=== PATIENT | female | born 1975 | race Caucasian/White ===

== ENCOUNTER 2021-11-11 18:20 | Inpatient (IN) ==
[2021-11-11] MEDS ORDERED: Ondansetron 4 MG/2 ML VIAL IVP ONE (18:34)
[2021-11-11 18:47] LABS: Bilirubin,Urine Moderate (Negative); Blood,Urine Trace-intact (Negative); Clarity,Urine Cloudy (Clear); Glucose,Urine (UA) >=1000 mg/dL (Normal); Ketones,Urine Trace mg/dL (Negative); Leukocyte Esterase,Urine Negative (Negative); Nitrite,Urine Negative (Negative); PH,Urine 5.5 pH Units (5.0-8.0); Protein,Urine 30 mg/dL (Neg-Trace); Specific Gravity,Urine 1.025 (1.010-1.025); Urobilinogen,Urine Normal (Normal)
[2021-11-11 18:52] LABS: Color,Urine Dark Yellow (Yellow)
[2021-11-11 18:57] LABS: Bacteria,Urine Moderate per hpf (None-Few); Budding Yeast,Urine Many per hpf (None Seen); RBC,Urine 0-3 per hpf (0-3); Squamous Epithelial Cell,Urine Many per hpf (None-Few)
[2021-11-11 19:09] LABS: Basophils % 0.6 %; Eosinophils # 0.1 K/mcL (0.0-0.6); Eosinophils % 1.3 %; Hematocrit 38.2 % (35.3-44.9); Hemoglobin 12.4 g/dL (11.5-15.4); Immature Granulocytes % 0.3 % (0-4); Mean Corpuscular HGB Conc 32.5 g/dL (31.6-35.5); Mean Corpuscular Hemoglobin 25.2 pg (28.0-33.3); Mean Corpuscular Volume 77.6 fL (83.0-100.0); Mean Platelet Volume 11.2 fL (9.4-12.4); Monocytes # 1.1 K/mcL (0.0-1.3); Monocytes % 17.3 %; Platelet Count 146 K/mcL (140-400); Red Blood Count 4.92 M/mcL (3.82-4.97); Red Cell Distribution Width 20.8 % (11.5-14.5); Segmented Neutrophils % 64.5 %; White Blood Count 6.2 K/mcL (4.3-11.1)
[2021-11-11 19:15] LABS: INR 1.4; Prothrombin Time 15.4 Seconds (9.4-12.1)
[2021-11-11 19:18] LABS: Activated Partial Thrombo Time 33.7 Seconds (26.0-36.0)
[2021-11-11 19:26] LABS: Alanine Aminotransferase 37 Units/L (7-52); Albumin 2.7 g/dL (3.5-5.7); Albumin/Globulin Ratio 0.6 (1.1-2.2); Alkaline Phosphatase 325 Units/L (34-104); Amylase 17 Units/L (29-103); Aspartate Amino Transferase 64 Units/L (13-39); BUN/Creatinine Ratio 15 (6-26); Bilirubin,Direct 0.9 mg/dL (0.0-0.2); Bilirubin,Indirect 1.9 mg/dL (0.0-1.0); Bilirubin,Total 2.8 mg/dL (0.3-1.0); Blood Urea Nitrogen 14 mg/dL (6-20); Calcium 8.3 mg/dL (8.6-10.3); Carbon Dioxide 23 mEq/L (23-29); Chloride 98 mEq/L (98-107); Globulin 4.6 g/dL (2.4-3.5); Glucose 340 mg/dL (70-105); Lipase 45 Units/L (11-82); Osmolality,Calculated 284 (280-300); Potassium 3.8 mEq/L (3.5-5.1); Sodium 130 mEq/L (136-145); Total Protein 7.3 g/dL (6.4-8.9); eGFR For African Americans > 60 (> 60); eGFR For Non-African Americans > 60 (> 60)
[2021-11-11] MEDS ORDERED: Furosemide 40 MG/4 ML VIAL IVP ONE (20:13)
[2021-11-11] MEDS: 0.9 % Sodium Chloride 1,000 ML IVC SCH (20:57)
[2021-11-11] MEDS ORDERED: Ketorolac 30 MG/ML VIAL IVP ONE (21:55)
[2021-11-12] MEDS: 0.9 % Sodium Chloride 1,000 ML IVC SCH (09:30)
[2021-11-12] MEDS ORDERED: *HR* OxyCODONE/APAP 5/325 TABLET PO ONE (09:48)
[2021-11-12] MEDS ORDERED: Naloxone 0.4 MG/ML INJ IVP PRN (10:52)
[2021-11-12] MEDS ORDERED: Ondansetron 4 MG/2 ML VIAL IVP PRN (11:08)
[2021-11-12] MEDS ORDERED: Acetaminophen 325 MG TABLET PO PRN (11:08)
[2021-11-12] MEDS ORDERED: CefTRIAXone 1,000 MG VIAL ONE (16:20)
[2021-11-12] MEDS: Furosemide 40 MG/4 ML VIAL IVP SCH ×2 (16:26→21:19)
[2021-11-12] MEDS: cefTRIAXone 1,000 MG in Water for inj. (sterile) 10 ML IVP SCH (16:26)
[2021-11-12] MEDS ORDERED: *HR* Dextrose 50 % in Water (Syg) 50 ML SYRINGE IVP PRN (16:30)
[2021-11-12] MEDS ORDERED: D5% in Water 1,000 ML IVC PRN (16:30)
[2021-11-12] MEDS ORDERED: Dextrose Gel 15 GM/37.5 ML TUBE PO PRN ×2 (16:30)
[2021-11-12] MEDS: Insulin LISPRO 300 UNITS/3 ML VIAL SUBQ SCH ×2 (17:07→21:57)
[2021-11-12] MEDS: Divalproex (12 HR) 250 MG TABLET PO SCH (20:50)
[2021-11-13 07:41] LABS: Hematocrit 34.6 % (35.3-44.9); Hemoglobin 11.4 g/dL (11.5-15.4); Mean Corpuscular HGB Conc 32.9 g/dL (31.6-35.5); Mean Corpuscular Hemoglobin 25.9 pg (28.0-33.3); Mean Corpuscular Volume 78.5 fL (83.0-100.0); Mean Platelet Volume 11.9 fL (9.4-12.4); Platelet Count 145 K/mcL (140-400); Red Blood Count 4.41 M/mcL (3.82-4.97); Red Cell Distribution Width 20.4 % (11.5-14.5); White Blood Count 6.9 K/mcL (4.3-11.1)
[2021-11-13] MEDS ORDERED: carvediloL 6.25 MG TABLET PO SCH (08:00)
[2021-11-13 08:07] LABS: Albumin 2.3 g/dL (3.5-5.7); Albumin/Globulin Ratio 0.6 (1.1-2.2); Bilirubin,Total 2.3 mg/dL (0.3-1.0); Chol/HDL Ratio 9.4 (0-4.9); Globulin 4.1 g/dL (2.4-3.5); Magnesium 1.4 mg/dL (1.6-2.6); Total Protein 6.4 g/dL (6.4-8.9)
[2021-11-13] MEDS ORDERED: lisinopriL 20 MG TABLET PO SCH (09:00)
[2021-11-13] MEDS: Insulin LISPRO 300 UNITS/3 ML VIAL SUBQ SCH ×4 (11:44→23:36)
[2021-11-13] MEDS: amLODIPine 5 MG TABLET PO SCH (12:47)
[2021-11-13] MEDS: Divalproex (12 HR) 250 MG TABLET PO SCH ×2 (12:47→23:31)
[2021-11-13] MEDS: Furosemide 40 MG/4 ML VIAL IVP SCH ×2 (13:44→21:04)
[2021-11-13] MEDS: cefTRIAXone 1,000 MG in Water for inj. (sterile) 10 ML IVP SCH (17:26)
[2021-11-13 17:55] LABS: RBC,Peritoneal Fluid < 2000 RBC/mcL
[2021-11-13 18:05] LABS: Amylase,Peritoneal Fluid < 10 Units/L (No Ref Range); Glucose,Peritoneal Fluid 269 mg/dL (No Ref Range); LDH,Peritoneal Fluid 30 Units/L (No Ref Range); Total Protein,Peritoneal Fluid < 2.0 g/dL
[2021-11-13 18:17] LABS: Appearance of Peritoneal Fl CLEAR (Clear)
[2021-11-13 19:01] LABS: Basophils,Peritoneal Fluid 0 %; Eosinophils,Peritoneal Fluid 0 %
[2021-11-13] MEDS: Lactulose Oral Soln 20 GM/30 ML UDC PO SCH (23:31)
[2021-11-13] MEDS: Albumin 25% 25gram/100mL 25 GM/100 ML IV.SOLN IVPB SCH (23:33)
[2021-11-14 07:12] LABS: Hematocrit 33.7 % (35.3-44.9); Hemoglobin 10.9 g/dL (11.5-15.4); Mean Corpuscular HGB Conc 32.3 g/dL (31.6-35.5); Mean Corpuscular Hemoglobin 25.3 pg (28.0-33.3); Mean Corpuscular Volume 78.2 fL (83.0-100.0); Mean Platelet Volume 10.9 fL (9.4-12.4); Platelet Count 118 K/mcL (140-400); Red Blood Count 4.31 M/mcL (3.82-4.97); Red Cell Distribution Width 20.5 % (11.5-14.5); White Blood Count 6.3 K/mcL (4.3-11.1)
[2021-11-14 07:45] LABS: Albumin 2.6 g/dL (3.5-5.7); Albumin/Globulin Ratio 0.7 (1.1-2.2); Bilirubin,Total 2.1 mg/dL (0.3-1.0); Calcium 7.9 mg/dL (8.6-10.3); Globulin 3.8 g/dL (2.4-3.5); Potassium 3.9 mEq/L (3.5-5.1); Total Protein 6.4 g/dL (6.4-8.9)
[2021-11-14] MEDS: amLODIPine 5 MG TABLET PO SCH (08:57)
[2021-11-14] MEDS: Divalproex (12 HR) 250 MG TABLET PO SCH ×2 (08:59→21:28)
[2021-11-14] MEDS: Albumin 25% 25gram/100mL 25 GM/100 ML IV.SOLN IVPB SCH (09:00)
[2021-11-14] MEDS: Lactulose Oral Soln 20 GM/30 ML UDC PO SCH ×3 (09:01→23:50)
[2021-11-14] MEDS: Furosemide 40 MG/4 ML VIAL IVP SCH ×2 (09:01→21:28)
[2021-11-14] MEDS: Insulin LISPRO 300 UNITS/3 ML VIAL SUBQ SCH ×4 (09:15→21:29)
[2021-11-14] MEDS: cefTRIAXone 1,000 MG in Water for inj. (sterile) 10 ML IVP SCH (16:53)
[2021-11-14] MEDS ORDERED: Albumin 25% 25gram/100mL 25 GM/100 ML IV.SOLN IVPB ONE (23:24)
[2021-11-15 06:13] LABS: Hematocrit 31.2 % (35.3-44.9); Hemoglobin 10.2 g/dL (11.5-15.4); Mean Corpuscular HGB Conc 32.7 g/dL (31.6-35.5); Mean Corpuscular Hemoglobin 25.3 pg (28.0-33.3); Mean Corpuscular Volume 77.4 fL (83.0-100.0); Platelet Count 102 K/mcL (140-400); Red Blood Count 4.03 M/mcL (3.82-4.97); Red Cell Distribution Width 20.4 % (11.5-14.5); White Blood Count 5.4 K/mcL (4.3-11.1)
[2021-11-15 06:34] LABS: Alanine Aminotransferase 25 Units/L (7-52); Albumin 2.9 g/dL (3.5-5.7); Albumin/Globulin Ratio 0.9 (1.1-2.2); Alkaline Phosphatase 219 Units/L (34-104); Aspartate Amino Transferase 45 Units/L (13-39); BUN/Creatinine Ratio 17 (6-26); Bilirubin,Total 1.7 mg/dL (0.3-1.0); Blood Urea Nitrogen 16 mg/dL (6-20); Carbon Dioxide 25 mEq/L (23-29); Chloride 99 mEq/L (98-107); Globulin 3.2 g/dL (2.4-3.5); Glucose 322 mg/dL (70-105); Magnesium 1.6 mg/dL (1.6-2.6); Osmolality,Calculated 286 (280-300); Potassium 3.8 mEq/L (3.5-5.1); Sodium 131 mEq/L (136-145); Total Protein 6.1 g/dL (6.4-8.9); eGFR For African Americans > 60 (> 60); eGFR For Non-African Americans > 60 (> 60)
[2021-11-15] MEDS: amLODIPine 5 MG TABLET PO SCH (08:48)
[2021-11-15] MEDS: Lactulose Oral Soln 20 GM/30 ML UDC PO SCH ×3 (08:48→20:39)
[2021-11-15] MEDS: Divalproex (12 HR) 250 MG TABLET PO SCH ×2 (08:48→20:37)
[2021-11-15] MEDS: Furosemide 40 MG/4 ML VIAL IVP SCH (09:02)
[2021-11-15] MEDS: Insulin LISPRO 300 UNITS/3 ML VIAL SUBQ SCH ×6 (09:02→20:38)
[2021-11-15] MEDS ORDERED: *HR* OxyCODONE Immed Rel 5 MG TABLET PO PRN (11:37)
[2021-11-15] MEDS: *HR* OxyCODONE Immed Rel 5 MG TABLET PO PRN ×2 (12:03→20:38)
[2021-11-15] MEDS: Magnesium Oxide 400 MG TABLET PO SCH ×2 (12:03→20:38)
[2021-11-15] MEDS: Furosemide 20 MG TABLET PO SCH (20:37)
[2021-11-15] MEDS: Insulin DETEMIR 100 UNIT/ML X5UNITS SUBQ SCH (20:38)
[2021-11-15] MEDS: Cefdinir 300 MG CAPSULE PO SCH (20:38)
[2021-11-16] MEDS ORDERED: Ondansetron ODT 4 MG TAB.RAPDIS SL PRN (00:45)
[2021-11-16 08:46] LABS: Hematocrit 33.4 % (35.3-44.9); Hemoglobin 11.1 g/dL (11.5-15.4); Mean Corpuscular HGB Conc 33.2 g/dL (31.6-35.5); Mean Corpuscular Hemoglobin 25.5 pg (28.0-33.3); Mean Corpuscular Volume 76.8 fL (83.0-100.0); Platelet Count 122 K/mcL (140-400); Red Blood Count 4.35 M/mcL (3.82-4.97); Red Cell Distribution Width 21.3 % (11.5-14.5); White Blood Count 7.1 K/mcL (4.3-11.1)
[2021-11-16 09:37] LABS: Alanine Aminotransferase 24 Units/L (7-52); Albumin 2.8 g/dL (3.5-5.7); Albumin/Globulin Ratio 0.8 (1.1-2.2); Alkaline Phosphatase 228 Units/L (34-104); Aspartate Amino Transferase 48 Units/L (13-39); BUN/Creatinine Ratio 18 (6-26); Bilirubin,Total 2.2 mg/dL (0.3-1.0); Blood Urea Nitrogen 14 mg/dL (6-20); Calcium 8.3 mg/dL (8.6-10.3); Carbon Dioxide 26 mEq/L (23-29); Chloride 99 mEq/L (98-107); Globulin 3.5 g/dL (2.4-3.5); Glucose 177 mg/dL (70-105); Osmolality,Calculated 279 (280-300); Potassium 3.9 mEq/L (3.5-5.1); Sodium 132 mEq/L (136-145); Total Protein 6.3 g/dL (6.4-8.9); eGFR For African Americans > 60 (> 60); eGFR For Non-African Americans > 60 (> 60)
[2021-11-16] MEDS: Cefdinir 300 MG CAPSULE PO SCH (09:56)
[2021-11-16] MEDS: *HR* OxyCODONE Immed Rel 5 MG TABLET PO PRN ×2 (09:58→18:33)
[2021-11-16] MEDS: amLODIPine 5 MG TABLET PO SCH (09:59)
[2021-11-16] MEDS: Divalproex (12 HR) 250 MG TABLET PO SCH (09:59)
[2021-11-16] MEDS: Furosemide 20 MG TABLET PO SCH ×2 (09:59→16:59)
[2021-11-16] MEDS: Magnesium Oxide 400 MG TABLET PO SCH (09:59)
[2021-11-16] MEDS: Lactulose Oral Soln 20 GM/30 ML UDC PO SCH ×2 (09:59→14:39)
[2021-11-16] MEDS: Insulin LISPRO 300 UNITS/3 ML VIAL SUBQ SCH ×3 (10:00→16:58)
[2021-11-16 18:57] LABS: Hematocrit 31.5 % (35.3-44.9); Hemoglobin 10.4 g/dL (11.5-15.4); Mean Corpuscular Hemoglobin 25.4 pg (28.0-33.3); Mean Platelet Volume 11.5 fL (9.4-12.4); Platelet Count 121 K/mcL (140-400); Red Blood Count 4.09 M/mcL (3.82-4.97); Red Cell Distribution Width 21.2 % (11.5-14.5); White Blood Count 6.4 K/mcL (4.3-11.1)
[2021-11-17 01:01] VITALS: RESP 18
[2021-11-17] MEDS: Lactulose Oral Soln 20 GM/30 ML UDC PO SCH ×2 (01:30→08:51)
[2021-11-17] MEDS: Magnesium Oxide 400 MG TABLET PO SCH ×2 (01:31→08:50)
[2021-11-17] MEDS: Cefdinir 300 MG CAPSULE PO SCH ×2 (01:31→08:50)
[2021-11-17] MEDS: Divalproex (12 HR) 250 MG TABLET PO SCH ×2 (01:31→08:50)
[2021-11-17] MEDS: Insulin DETEMIR 100 UNIT/ML X5UNITS SUBQ SCH (01:34)
[2021-11-17] MEDS: Insulin LISPRO 300 UNITS/3 ML VIAL SUBQ SCH ×3 (01:35→12:15)
[2021-11-17 07:01] VITALS: BP 99/60; PULSE 75; TEMP 98; O2SAT 96
[2021-11-17 08:31] LABS: Hematocrit 32.1 % (35.3-44.9); Hemoglobin 10.6 g/dL (11.5-15.4); Mean Corpuscular Hemoglobin 25.2 pg (28.0-33.3); Mean Corpuscular Volume 76.4 fL (83.0-100.0); Mean Platelet Volume 11.1 fL (9.4-12.4); Platelet Count 102 K/mcL (140-400); Red Cell Distribution Width 21.5 % (11.5-14.5); White Blood Count 5.5 K/mcL (4.3-11.1)
[2021-11-17] MEDS: Furosemide 20 MG TABLET PO SCH (08:50)
[2021-11-17] MEDS: amLODIPine 5 MG TABLET PO SCH (08:50)
[2021-11-17] MEDS: *HR* OxyCODONE Immed Rel 5 MG TABLET PO PRN (08:50)
[2021-11-17 10:21] LABS: Alanine Aminotransferase 24 Units/L (7-52); Albumin 2.7 g/dL (3.5-5.7); Albumin/Globulin Ratio 0.7 (1.1-2.2); Alkaline Phosphatase 216 Units/L (34-104); Aspartate Amino Transferase 47 Units/L (13-39); BUN/Creatinine Ratio 20 (6-26); Blood Urea Nitrogen 15 mg/dL (6-20); Calcium 8.1 mg/dL (8.6-10.3); Carbon Dioxide 27 mEq/L (23-29); Chloride 99 mEq/L (98-107); Globulin 3.7 g/dL (2.4-3.5); Glucose 259 mg/dL (70-105); Osmolality,Calculated 284 (280-300); Sodium 132 mEq/L (136-145); Total Protein 6.4 g/dL (6.4-8.9); eGFR For African Americans > 60 (> 60); eGFR For Non-African Americans > 60 (> 60)
== END 2021-11-17 14:36 | disposition home or self-care (01) ==
LOC: INPPIK 18:20 → EMEROOPIK 18:20 → INPPIK 11-12 15:27
PROVIDERS: ADMIT Family Medicine; ATTEND Family Medicine